=== PATIENT | male | born 1985 | race Caucasian/White ===

== ENCOUNTER 2020-03-09 07:48 | Emergency (ER) | payer OTHER ==
[2020-03-09 08:55] LABS: HEMOGLOBIN 15.7 gm/dl (14.0-17.5); RED BLOOD COUNT 5.21 M/UL (4.20-5.50); WHITE BLOOD COUNT 6.3 K/UL (4.5-11.0)
[2020-03-09 09:24] LABS: BUN/CREATININE RATIO 11 (0-10)
[2020-03-09] MEDS ORDERED: DULCOLAX10 MG PR (10:48)
== END 2020-03-09 10:56 | disposition home or self-care (01) ==
LOC: ER1 07:48
PROVIDERS: Emergency Medicine
DX: K56.41 Fecal impaction (principal); F17.200 Nicotine dependence, unspecified, uncomplicated; Z86.19 Personal history of other infectious and parasitic diseases; Z87.19 Personal history of other diseases of the digestive system
CPT/HCPCS: 80053; 80307; 81001; 83690; 85025; 85610; 85730; 96374; 96375; 99284; J1885; J2405; J7030; Q9967

== ENCOUNTER → 2020-09-03 | Outpatient (CLI) | payer OTHER ==
[~2020-09-03] MED LIST: DULCOLAX10 MG PR
== END ==
LOC: KOH-I 16:25
DX: M79.642 Pain in left hand (principal); M25.532 Pain in left wrist; M79.632 Pain in left forearm
CPT/HCPCS: 73090; 73110; 73130

== ENCOUNTER 2020-09-05 17:21 | Emergency (ER) | payer OTHER | END 2020-09-05 18:22 | disposition home or self-care (01) | LOC: ER1 17:21 | DX: G89.29 Other chronic pain (principal); M79.642 Pain in left hand; M25.531 Pain in right wrist; M79.645 Pain in left finger(s) | CPT/HCPCS: 99283 ==

== ENCOUNTER → 2021-07-29 | Outpatient (CLI) | payer OTHER ==
[~2021-07-29] MED LIST changes: +BENZONATATE200 MG PO
== END ==
LOC: KOH-I 14:06
DX: J44.9 Chronic obstructive pulmonary disease, unspecified (principal); R06.02 Shortness of breath
CPT/HCPCS: 71046